=== PATIENT | female | born 1960 | race Caucasian/White ===

== ENCOUNTER → 2021-09-30 | Outpatient (CLI) | payer OTHER ==
--- NOTE | 2021-10-01 08:30 | KCIC ---
XR HAND 3 VIEWS History: Pain in joints. Rheumatoid arthritis Comparison: None. Technique: 3 views of the left hip and 3 views of the right hand Findings: There is diffuse juxta-articular osteopenia. No acute fracture or dislocation. Bilateral advanced rad iocarpal narrowing and bilateral DRUJ degenerative change. Suggestion of early erosive changes at the radial aspect of the second metacarpal heads bilaterally. Impression: 1. Degenerative changes of bilateral hands including juxta-articular osteopenia and advanced radioca rpal narrowing. These findings can be compatible with inflammatory arthritis such as rheumatoid arthr itis. Electronically signed by: Bryan Cross MD (10/01/2021 8:27 AM) [id number]
--- NOTE | 2021-10-01 08:32 | KCIC ---
XR KNEE 3 VIEWS History: Pain in joint Comparison: None. Technique: 3 views of the bilateral knees Findings: Osseous mineralization is normal. No acute fracture or dislocaton. Degenerative changes characterized by advanced patellofemoral compartment and medial compartment narrowing with large tricompartmental osteophytes. No significant suprapatellar effusions. No focal soft tissue swelling. Impression: 1. Degenerative changes of bilateral knees favored to represent osteoarthritis. Electronically signed by: Bryan Cross MD (10/01/2021 8:29 AM) [id number]
--- NOTE | 2021-10-01 08:38 | KCIC ---
XR BILAT FEET 3 VIEWS History: Pain in joint/RA. Comparison: None. Technique: 3 views the right foot and 3 views the left foot. Findings: Mild juxta-articular osteopenia. No fracture or dislocation. Bilateral hammertoe alignment of C2-C5. Joint space narrowing and osteophyte formation at the tarsometatarsal joints. Bilateral plantar calca robin enthesophytes. Possible early erosive changes at the bilateral metatarsophalangeal joints. No fo lizeth soft tissue swelling. Impression: 1. Degenerative changes of bilateral feet which could represent rheumatoid arthritis. Recommend rico elation with clinical and laboratory exam. Electronically signed by: Bryan Cross MD (10/01/2021 8:35 AM) [id number]
== END ==
LOC: KCIC 11:29
PROVIDERS: ATTEND Internal Medicine Rheumatology
DX: M17.0 Bilateral primary osteoarthritis of knee (principal); M19.042 Primary osteoarthritis, left hand; M19.041 Primary osteoarthritis, right hand; M77.32 Calcaneal spur, left foot; M77.31 Calcaneal spur, right foot; M20.42 Other hammer toe(s) (acquired), left foot; M20.41 Other hammer toe(s) (acquired), right foot; M25.762 Osteophyte, left knee; M25.761 Osteophyte, right knee; M85.88 Other specified disorders of bone density and structure, other site
CPT/HCPCS: 73130-50; 73562-50; 73630-50